=== PATIENT | male | born 1990 | race Caucasian/White ===

== ENCOUNTER 2016-08-17 12:09 | Emergency (ER) | payer MEDICAID ==
--- NOTE | 2016-08-17 12:21 | EDPHY ---
H & P Time Seen by Provider: 08/17/16 12:17 HPI/ROS: CHIEF COMPLAINT: Toe infection HISTORY OF PRESENT ILLNESS: Patient is a 26-year-old man who comes to the emergency department with his mom complaining of a cellulitis in his left great toe. He states that he was seen last week at [facility] and started on oral Keflex. He did not require I and D. He states that his symptoms improved dramatically with the Keflex but that his last dose was yesterday. He only took it for 5 days. He states that his pain and erythema starting to return. He is asking for a longer course of the medication. He does not have any history of trauma. No history of gout. No pain with movement of the joint. No nail or nail bed involvement. REVIEW OF SYSTEMS: Constitutional: denies: chills, fever, recent illness, recent injury EENTM: denies: blurred vision, double vision, nose congestion Respiratory: denies: cough, shortness of breath Cardiac: denies: chest pain, irregular heart rate, lightheadedness, palpitations Gastrointestinal/Abdominal: denies: abdominal pain, diarrhea, nausea, vomiting, blood streaked stools Genitourinary: denies: dysuria, frequency, hematuria, pain Musculoskeletal: denies: joint pain, muscle pain Skin: See HPI Neurological: denies: headache, numbness, paresthesia, tingling, dizziness, weakness Hematologic/Lymphatic: denies: blood clots, easy bleeding, easy bruising Immunologic/allergic: denies: HIV/AIDS, transplant EXAM: GENERAL: Well-appearing, well-nourished and in no acute distress. HEAD: Atraumatic, normocephalic. EYES: Pupils equal round and reactive to light, extraocular movements intact, sclera anicteric, conjunctiva are normal. ENT: TMs normal, nares patent, oropharynx clear without exudates. Moist mucous membranes. NECK: Normal range of motion, supple without lymphadenopathy or JVD. LUNGS: Breath sounds clear to auscultation bilaterally and equal. No wheezes rales or rhonchi. HEART: Regular rate and rhythm without murmurs, rubs or gallops. ABDOMEN: Soft, nontender, normoactive bowel sounds. No guarding, no rebound. No masses appreciated. BACK: No CVA tenderness, no spinal tenderness, step-offs or deformities EXTREMITIES: Normal range of motion, no pitting or edema. No clubbing or cyanosis. NEUROLOGICAL: Cranial nerves II through XII grossly intact. Normal speech, normal gait. 5/5 strength, normal movement in all extremities, normal sensation PSYCH: Normal mood, normal affect. SKIN: Very light erythema and swelling over the dorsum of the left great toe. No obvious joint involvement. No nail or nail bed involvement. Source: Patient Exam Limitations: No limitations - Personal History Current Tetanus/Diphtheria Vaccine: Yes - Medical/Surgical History Hx Asthma: No Hx Chronic Respiratory Disease: No Hx Diabetes: No Hx Cardiac Disease: No Hx Renal Disease: No Hx Cirrhosis: No Hx Alcoholism: No Hx HIV/AIDS: No - Family History Significant Family History: No pertinent family hx - Social History Alcohol Use: Sober Drug Use: None Constitutional: Initial Vital Signs Temperature (C) 36.5 C 08/17/16 12:12 Heart Rate 100 08/17/16 12:12 Respiratory Rate 16 08/17/16 12:12 Blood Pressure 131/83 H 08/17/16 12:12 O2 Sat (%) 96 08/17/16 12:12 O2 Delivery Mode Room Air Allergies/Adverse Reactions: No Known Allergies Allergy (Verified 08/17/16 12:28) Home Medications: Medication Instructions Recorded Cephalexin [Keflex] 500 mg PO TID #21 cap 08/17/16 Medical Decision Making ED Course/Re-evaluation: The patient has what appears to be a cellulitis on his toe. No visible abscess. No obvious joint involvement or signs of gout or septic joint. He is requesting a refill of his antibiotics. I will give him another prescription to prolong his course. He states that he has had improvement thus far. I agree that this is reasonable. We discussed indications for returning and the importance of following up with his primary physician. Patient and mom agree with this plan. We did discuss possibly a I and D however the patient is very opposed to this. Differential Diagnosis: Partial list of the Differential diagnosis considered include but were not limited to; cellulitis, abscess and although unlikely based on the history and physical exam, I also considered septic joint, gout, arthritis, foreign body, fracture. I discussed these differential diagnoses and the plan with the patient and mom as well as the usual and expected course. The patient understands that the diagnosis is provisional and that in medicine we are not always correct and that further workup is often warranted. Usual and customary warnings were given. All of the patient's questions were answered. The patient was instructed to return to the emergency department should the symptoms at all worsen or return, otherwise to followup with the physician as we discussed. Departure - Departure Disposition: Home, Routine, Self-Care Clinical Impression: Cellulitis Qualifiers: Site of cellulitis: extremity Site of cellulitis of extremity: toe Laterality: left Qualified Code(s): L03.032 - Cellulitis of left toe Condition: Fair Instructions: Cellulitis (ED) Referrals: NONE *PRIMARY CARE P,. [Primary Care Provider] - As per Instructions Jaleesa Sher MD [Medical Doctor] - As per Instructions Prescriptions: Cephalexin [Keflex] 500 mg PO TID #21 cap
[2016-08-17 12:31] VITALS: BP 131/83; PULSE 100; RESP 16; TEMP 97.7; O2SAT 96
== END 2016-08-17 12:27 | disposition home or self-care (01) ==
LOC: CED 12:09
DX: L03.032 Cellulitis of left toe (principal)